=== PATIENT | female | born 1965 | race Asian ===

== ENCOUNTER 2016-11-03 19:09 | Emergency (ER) | payer BC ==
[2016-11-03 19:25] VITALS: BMI 37.9
[2016-11-03] MEDS ORDERED: SODIUM CHLORIDE 1,000 ML IV STA (20:06)
[2016-11-03] MEDS ORDERED: KETOROLAC TROMETHAMINE 30 MG/1 ML VIAL IVPUSH ONE (20:06)
[2016-11-03] MEDS ORDERED: KETOROLAC TROMETHAMINE 30 MG/1 ML VIAL ONE (20:12)
--- NOTE | 2016-11-03 20:12 | PDOC ---
History of Present Illness - General Chief Complaint: Pain, Acute Stated Complaint: KIDNEY PAIN Time Seen by Provider: 11/03/16 19:35 - History of Present Illness Initial Comments: 11/03/16 20:08 51-year-old female complaining of Right flank pain going to the right groin. Patient has a history of PCO S, nephrolithiasis, hypertension. Last episode of renal colic 2 years ago. patient reports pain similar to when passing a kidney stone. Patient denies fever nausea vomiting urinary symptoms at this time. patient denies Vaginal bleeding or vaginal discharge at time.. Past History - Past Medical History Allergies/Adverse Reactions: Allergies Allergy/AdvReac Type Severity Reaction Status Date / Time No Known Allergies Allergy Verified 11/03/16 19:21 Home Medications: Ambulatory Orders Metoprolol Tartrate [Lopressor] 10 mg PO BID 09/02/12 Invokamet 150-1,000 mg Tablet 150 - 1,000 mg PO BID 11/03/16 Cephalexin Monohydrate [Keflex -] 500 mg PO BID #20 capsule 11/04/16 Ibuprofen 600 mg PO QID PRN #20 tablet 11/04/16 Oxycodone HCl/Acetaminophen [Percocet 5-325 mg Tablet] 1 tab PO Q6H PRN #12 tablet MDD 4 11/04/16 Tamsulosin HCl [Flomax] 0.4 mg PO DAILY #7 cap.er.24h 11/04/16 Diabetes: Yes (Borderline) HTN: Yes Hypercholesterolemia: Yes Kidney Stones: Yes - Psycho/Social/Smoking Cessation Hx Suicidal Ideation: No Smoking Status: No Smoking History: Never smoked Number of Cigarettes Smoked Daily: 0 Information on smoking cessation initiated: No Hx Alcohol Use: No Drug/Substance Use Hx: No Substance Use Type: None Review of Systems - Review of Systems Able to Perform ROS?: Yes Is the patient limited Mexican proficient: No Constitutional: No: Symptoms Reported, See HPI, Chills, Diaphoresis, Fever, Loss of Appetite, Malaise, Night Sweats, Weakness, Weight Stable, Unintentional Wgt. Loss, Unexplained wgt Loss, Other : Yes: Flank Pain (right). No: Symptoms Reported, See HPI, Burning, Dysuria, Discharge, Frequency, Hematuria, Incontinence, Pain, Urgency, Testicular Mass, Testicular Swelling, Lesions, Testicular Pain, Other *Physical Exam - Vital Signs Last Vital Signs Temp Pulse Resp BP Pulse Ox 98.6 F 71 19 143/82 96 11/03/16 19:21 11/03/16 19:21 11/03/16 19:21 11/03/16 19:21 11/03/16 19:21 11/03/16 20:12 - Physical Exam General Appearance: Yes: Appropriately Dressed (Blank in) Respiratory/Chest: positive: Lungs Clear, Normal Breath Sounds Cardiovascular: positive: Regular Rhythm, Regular Rate Gastrointestinal/Abdominal: positive: Normal Bowel Sounds, Soft. negative: Tender Musculoskeletal: positive: CVA Tenderness (R) Extremity: positive: Normal Capillary Refill, Normal Inspection, Normal Range of Motion Integumentary: positive: Normal Color, Dry, Warm Neurologic: positive: Fully Oriented, Alert, Normal Mood/Affect ED Treatment Course - LABORATORY CBC & Chemistry Diagram: 11/03/16 20:21 11/03/16 20:21 - RADIOLOGY Radiograph Interpretation: 11/04/16 00:15 CTAP: Tiny bilateral nonobstructing renal stones 4.5X3 MM stone in the proximal right ureter with mild fullness of right renal pelvic calyceal system. Small umbilical fat-containing hernia. Progress Note - Progress Note Progress Note: A: Flank pain rule out kidney stone Plan: CBC, CMP, UA, urine culture, urine Spiral CT Pain control IV fluids Medical Decision Making - Medical Decision Making 11/04/16 00:16 4 mm stone in the right ureter. Will give Flomax Pain control and urology outpatient follow-up CT results discussed with the patient. 11/04/16 00:43 UA trace leuks. will empirically treat. *DC/Admit/Observation/Transfer Diagnosis at time of Disposition: Kidney stone - Discharge Dispostion Disposition: HOME - Prescriptions Prescriptions: Tamsulosin HCl [Flomax] 0.4 mg PO DAILY #7 cap.er.24h Ibuprofen 600 mg PO QID PRN #20 tablet PRN Reason: Pain Level 1-5 Cephalexin Monohydrate [Keflex -] 500 mg PO BID #20 capsule Oxycodone HCl/Acetaminophen [Percocet 5-325 mg Tablet] 1 tab PO Q6H PRN #12 tablet MDD 4 PRN Reason: Pain - Referrals Referrals: Yordan Cabrera MD [Primary Care Provider] - Mazin Erazo MD [Staff Physician] - - Patient Instructions Printed Discharge Instructions: Kidney Stones (Alternative Therapy) Additional Instructions: take ibuprofen as prescribed for moderate pain Take Percocet as prescribed for severe pain Take Flomax as prescribed Take cephalexin as prescribed Follow up with urologist as soon as possible. Drink plenty of water Return to the ER if you're having fever or severe pain, or worsening symptoms.
[2016-11-03 20:47] LABS: BASOPHIL 0.8 % (0-2.0); EOSINOPHIL 3.7 % (0-4.5); MCH 26.2 pg (25.7-33.7); MCHC 32.1 g/dl (32.0-36.0); MEAN CELL VOLUME 81.4 fl (80-96); MEAN PLT VOLUME 9.2 fl (7.5-11.1); NEUTROPHILS 65.8 % (42.8-82.8); PLATELET COUNT 327 K/MM3 (134-434); WHITE BLOOD COUNT 12.3 K/mm3 (4.0-10.0)
[2016-11-03 21:11] LABS: URINE APPEARANCE CLEAR; URINE BILIRUBIN NEGATIVE (NEGATIVE); URINE COLOR LTYELLOW; URINE GLUCOSE (UA) 2+ (NEGATIVE); URINE KETONE NEGATIVE (NEGATIVE); URINE NITRITE NEGATIVE (NEGATIVE); URINE PROTEIN NEGATIVE (NEGATIVE); URINE UROBILINOGEN NEGATIVE E.U./dl (0.2-1.0)
[2016-11-03 21:12] LABS: ALBUMIN 3.3 g/dl (3.4-5.0); ALK PHOS 155 U/L (45-117); ANION GAP 9 (8-16); BILIRUBIN,TOTAL 0.3 mg/dL (0.2-1.0); CALCIUM 11.1 mg/dL (8.5-10.1); CO2 29 mmol/L (21-32); COCKROFT - GAULT 127.2365; CREATININE 0.9 mg/dL (0.55-1.02); GLUCOSE,RANDOM 207 mg/dL (74-106); SGOT/AST 14 U/L (15-37); SGPT/ALT 36 U/L (12-78); TOT PROT 7.4 g/dl (6.4-8.2)
[2016-11-03 21:16] LABS: URINE BLOOD 1+ (NEGATIVE); URINE LEUK ESTERASE TRACE (NEGATIVE)
--- NOTE | 2016-11-03 21:28 | PDOC ---
*Physical Exam - Vital Signs Last Vital Signs Temp Pulse Resp BP Pulse Ox 98.6 F 71 19 143/82 96 11/03/16 19:21 11/03/16 19:21 11/03/16 19:21 11/03/16 19:21 11/03/16 19:21 ED Treatment Course - LABORATORY CBC & Chemistry Diagram: 11/03/16 20:21 11/03/16 20:21 - ADDITIONAL ORDERS Additional order review: Laboratory Results 11/03/16 11/03/16 11/03/16 20:21 20:21 20:21 Sodium 140 Potassium 3.6 Chloride 102 Carbon Dioxide 29 Anion Gap 9 BUN 13 Creatinine 0.9 D Creat Clearance w eGFR > 60 Random Glucose 207 H D Calcium 11.1 H Total Bilirubin 0.3 D AST 14 L ALT 36 D Alkaline Phosphatase 155 H D Total Protein 7.4 Albumin 3.3 L Urine Color Ltyellow Urine Appearance Clear Urine pH 6.0 Urine Protein Negative Urine Glucose (UA) 2+ H Urine Ketones Negative Urine Blood 1+ H Urine Nitrite Negative Urine Bilirubin Negative Urine Urobilinogen Negative Ur Leukocyte Esterase Trace H D Urine HCG, Qual Negative 11/03/16 20:21 RBC 5.24 H MCV 81.4 MCHC 32.1 RDW 15.0 MPV 9.2 Neutrophils % 65.8 Lymphocytes % 22.2 D Monocytes % 7.5 D Eosinophils % 3.7 Basophils % 0.8 - Medications Given in the ED: ED Medications Discontinued Medications Generic Name Dose Route Start Last Admin Trade Name Freq PRN Reason Stop Dose Admin Sodium Chloride 1,000 mls @ 1,000 mls/hr 11/03/16 20:06 11/03/16 20:26 Normal Saline - IV 11/03/16 21:05 1,000 mls/hr ASDIR STA Administration Ketorolac Tromethamine 30 mg 11/03/16 20:06 11/03/16 21:16 Toradol Injection - IVPUSH 11/03/16 20:07 30 mg ONCE ONE Administration Medical Decision Making - Medical Decision Making 11/03/16 21:28 agree with care from GUSTAVO Philip *DC/Admit/Observation/Transfer Diagnosis at time of Disposition: Kidney stone - Discharge Dispostion Disposition: HOME - Prescriptions Prescriptions: Tamsulosin HCl [Flomax] 0.4 mg PO DAILY #7 cap.er.24h Ibuprofen 600 mg PO QID PRN #20 tablet PRN Reason: Pain Level 1-5 Cephalexin Monohydrate [Keflex -] 500 mg PO BID #20 capsule Oxycodone HCl/Acetaminophen [Percocet 5-325 mg Tablet] 1 tab PO Q6H PRN #12 tablet MDD 4 PRN Reason: Pain - Referrals Referrals: Mazin Erazo MD [Staff Physician] - Yordan Cabrera MD [Primary Care Provider] - - Patient Instructions Printed Discharge Instructions: Kidney Stones (Alternative Therapy) Additional Instructions: take ibuprofen as prescribed for moderate pain Take Percocet as prescribed for severe pain Take Flomax as prescribed Take cephalexin as prescribed Follow up with urologist as soon as possible. Drink plenty of water Return to the ER if you're having fever or severe pain, or worsening symptoms.
[2016-11-03 21:51] LABS: URINE MUCUS RARE; URINE RBC 28 /hpf (0-3); URINE WBC 1 /hpf (3-5)
[2016-11-03] MEDS ORDERED: morphine CARPU-JECT 4 MG/1 ML DISP.SYRIN IVPUSH ONE (23:06)
[2016-11-03] MEDS ORDERED: morphine CARPU-JECT 4 MG/1 ML DISP.SYRIN ONE (23:08)
[2016-11-04] MEDS ORDERED: TAMSULOSIN HCL 0.4 MG CAP.ER.24H (FP) PO ONE (00:13)
[2016-11-04] MEDS ORDERED: TAMSULOSIN HCL 0.4 MG CAP.ER.24H (FP) ONE (00:29)
[2016-11-04 00:53] VITALS: BP 147/96; PULSE 65; TEMP 98.1
== END 2016-11-04 00:55 | disposition home or self-care (01) ==
LOC: JER 19:09
PROC: 3E033NZ Introduction of Analgesics, Hypnotics, Sedatives into Peripheral Vein, Percutaneous Approach (ICD-10-PCS; principal; 2016-11-03)
PROC: 3E0333Z Introduction of Anti-inflammatory into Peripheral Vein, Percutaneous Approach (ICD-10-PCS; 2016-11-03)
PROC: 3E0337Z Introduction of Electrolytic and Water Balance Substance into Peripheral Vein, Percutaneous Approach (ICD-10-PCS; 2016-11-03)
DX: N23 Unspecified renal colic (principal); I10 Essential (primary) hypertension; E78.00 Pure hypercholesterolemia, unspecified; Z87.442 Personal history of urinary calculi
CPT/HCPCS: 36415; 74176; 80053; 81003; 81015; 84703; 85025; 87086; 99283-25

== ENCOUNTER 2017-02-16 08:17 | Day surgery (SDC) | payer BC ==
[2017-02-14 12:26] VITALS: BMI 37.4
[2017-02-16] MEDS ORDERED: PROPOFOL 20 ML ONE (09:58)
[2017-02-16] MEDS ORDERED: ROCURONIUM BROMIDE 50 MG/5 ML VIAL ONE ×2 (09:58→11:20)
[2017-02-16] MEDS ORDERED: BUPIVACAINE HCL/PF 0.5% (5MG/ML) 10 ML VIAL ONE (10:18)
[2017-02-16] MEDS ORDERED: ceFAZolin SODIUM 1 GM VIAL IVPB ONE (10:29)
[2017-02-16] MEDS ORDERED: LIDOCAINE HCL/PF 2% SDV 5ML VIAL ONE (10:40)
[2017-02-16] MEDS ORDERED: DEXAMETHASONE SOD PHOSPHATE 4 MG/1 ML VIAL ONE (10:40)
[2017-02-16] MEDS ORDERED: LIDOCAINE HCL 2% JELLY (5 ML/TUBE) ONE (10:40)
[2017-02-16] MEDS ORDERED: NEOSTIGMINE METHYLSULFATE 0.5 MG/ML - 10 ML MDV ONE (10:41)
[2017-02-16] MEDS ORDERED: GLYCOPYRROLATE 0.2 MG/1 ML VIAL ONE (10:42)
[2017-02-16] MEDS ORDERED: BUPIVACAINE HCL/PF 0.5% (5MG/ML) 10 ML VIAL IJ ONE ×2 (11:04→12:28)
[2017-02-16] MEDS ORDERED: HYDROmorphone HCL CARPU-JECT 1 MG/1 ML DISP.SYRIN IVPB PRN (12:38)
[2017-02-16] MEDS ORDERED: ONDANSETRON 4 MG/2 ML VIAL IVPB PRN (12:38)
[2017-02-16] MEDS ORDERED: SODIUM CHLORIDE 1,000 ML IV SCH (12:45)
[2017-02-16] MEDS ORDERED: FAMOTIDINE 20 MG/50 ML IVPB 50 ML IVPB ONE (12:53)
[2017-02-16] MEDS ORDERED: FAMOTIDINE 20 MG PREMIXED IVPB IVPB ONE (13:15)
[2017-02-16 13:19] LABS: MCH 26.9 pg (25.7-33.7); MCHC 31.9 g/dl (32.0-36.0); MEAN CELL VOLUME 84.5 fl (80-96); MEAN PLT VOLUME 8.5 fl (7.5-11.1); PLATELET COUNT 335 K/MM3 (134-434); RDW 14.5 % (11.6-15.6); WHITE BLOOD COUNT 12.9 K/mm3 (4.0-10.0)
[2017-02-16 13:47] VITALS: TEMP 98.1
[2017-02-16 13:48] LABS: ANION GAP 9 (8-16); CALCIUM 9.2 mg/dL (8.5-10.1); CO2 26 mmol/L (21-32); CREATININE 0.6 mg/dL (0.55-1.02); GLUCOSE,RANDOM 187 mg/dL (74-106)
--- NOTE | 2017-02-16 15:01 | OP ---
DATE OF OPERATION: 02/16/2017 PREOPERATIVE DIAGNOSES: 1. Morbid obesity. 2. Sleep apnea. 3. Hypertension. 4. Polycystic ovarian syndrome. POSTOPERATIVE DIAGNOSES: 1. Morbid obesity. 2. Sleep apnea. 3. Hypertension. 4. Polycystic ovarian syndrome. 5. Hepatomegaly. PROCEDURE PERFORMED: 1. Gastric band for gastric restriction. 2. Diagnostic laparoscopy. OPERATING SURGEON: Roderick Hernandez MD HELICOPTER DISPATCHER: Mao Porras MD ANESTHESIA: General. OPERATIVE PROCEDURE: The patient was brought into the operating room and placed on the OR table in the supine position. All precautions were taken initially including padding for the back and the feet, and Venodyne boots were placed on both lower extremities. At that point, the abdomen was prepped and draped in the usual manner. A Veress needle was placed in the left upper quadrant and a pneumoperitoneum was established. It should be noted that this Veress needle was placed farther below the costal margin than normal because of the expected enlarged liver of the patient. After pneumoperitoneum was established, a no. 12 bladeless trocar was placed in the left upper quadrant and through that trocar, a laparoscopic camera was placed. This showed an extremely enlarged left lobe of the liver, extending far inferior than expected. Because of this, a no. 12 bladeless trocar was then placed below the left costal margin, and through that trocar, the camera was now placed for better visualization of the upper abdomen. This was followed by a no. 5 bladeless trocar and a no. 15 bladeless trocar in the right upper quadrant. At that point, a Miquel liver retractor was placed in the epigastrium to retract the left lobe of the liver. It was difficult to retract because the liver was so enlarged. The liver retractor needed to be moved multiple times between the greater curvature of the stomach and the lesser curvature in order to provide visualization of both sides of the stomach. The patient was then placed in a 20-degree reverse Trendelenburg position. The hygiene assistant surgeon, who was holding the camera, was able to retract the omentum in the left upper quadrant inferiorly in order to provide visualization of the left esophagogastric junction. The operating surgeon then grabbed the stomach and pulled it to the right side and electrocautery was used to score the peritoneum over the left esophagogastric junction. This continued superiorly until the left odalys of the diaphragm was noted. The stomach was then pulled to the patient's left side by the hygiene assistant surgeon while the operating surgeon located the caudate lobe of the liver. An opening was made in the avascular plane and the gastrohepatic ligament was divided with hemoclips up toward the right esophagogastric junction. The right odalys of the diaphragm was noted in the peritoneum anterior with electrocautery. A laparoscopic instrument was then used to make a blunt tunnel from the right to the left odalys until it was free in the left lower quadrant of the abdomen. The gastric band, which was an AP large band, was then prepped by the OR team and placed in a no. 15 port site. The band tube then placed with the laparoscopic instrument which was pulled and withdrawn to the patient's right side. The band tube was placed into the band buckle, which was tied with down and the band was rotated to the patient's right side. Our laparoscopic instrument easily fit between the band and the anterior stomach wall. The band tubing was then brought out of the no. 15 trocar site under direct vision. All trocars were removed. The pneumoperitoneum was released. The no. 15 trocar site on the outside was then extended laterally and dissection continued with electrocautery down to the right anterior rectus muscle. Next, 2-0 Prolene sutures were placed on all 4 sites, and the port was then attached to the right anterior rectus muscle. All trocar sites then received 0.25% Marcaine and were closed with 4-0 Biosyn in a subcuticular fashion. The port site was first closed with 3-0 Vicryl in the subcutaneous tissue, followed by 4-0 Biosyn in subcuticular fashion. Dressings were applied. The patient awoke from anesthesia and transferred out of the operating room to the recovery room in stable condition. EXPECTED BLOOD LOSS: 50 mL. ADDENDUM: It should be noted that because of the difficulty with the enlarged liver, the normal time of surgery, 60 minutes, took 100 minutes. This was complicated by the extremely enlarged size of the liver. David [id number]
[2017-02-16] MEDS ORDERED: ONDANSETRON 4 MG/2 ML VIAL ONE (15:05)
[2017-02-16] MEDS ORDERED: ONDANSETRON 4 MG/2 ML VIAL IVPB ONE (15:10)
[2017-02-16] MEDS ORDERED: ENOXAPARIN NA (PORCINE) 40 MG/0.4 ML DISP.SYRIN SQ ONE ×2 (15:30→16:30)
[2017-02-16] MEDS ORDERED: HYDROmorphone HCL CARPU-JECT 2 MG/1 ML DISP.SYRIN ONE (16:05)
[2017-02-16] MEDS ORDERED: HYDROmorphone HCL CARPU-JECT 2 MG/1 ML DISP.SYRIN IVPUSH ONE (16:10)
[2017-02-16] MEDS ORDERED: ACETAMINOPHEN 325 MG TABLET (FP) PO ONE (16:30)
[2017-02-16] MEDS ORDERED: oxyCODONE HCL 5 MG TABLET PO ONE (16:30)
[2017-02-16 19:13] VITALS: BP 140/90; PULSE 94
[2017-02-16] MEDS ORDERED: FAMOTIDINE 20 MG/50 ML IVPB 50 ML IVPB SCH (22:00)
== END 2017-02-16 18:30 | disposition home or self-care (01) ==
LOC: JASU-SURG 08:17
PROVIDERS: ATTEND Surgery
PROC: 0DV64CZ Restriction of Stomach with Extraluminal Device, Percutaneous Endoscopic Approach (ICD-10-PCS; principal; 2017-02-16 10:00)
DX: E66.01 Morbid (severe) obesity due to excess calories (principal); G47.30 Sleep apnea, unspecified; I10 Essential (primary) hypertension; E28.2 Polycystic ovarian syndrome; R16.0 Hepatomegaly, not elsewhere classified
CPT/HCPCS: 36415; 74241-TC; 80048; 84703; 85027; 86850; 86900; 86901; 94010; 94760

== ENCOUNTER 2018-09-16 17:01 | Emergency (ER) | payer BC ==
--- NOTE | 2018-09-16 17:20 | PDOC ---
History of Present Illness - General Chief Complaint: Chest Pain Stated Complaint: Pain Time Seen by Provider: 09/16/18 17:18 History Source: Patient Exam Limitations: No Limitations - History of Present Illness Initial Comments: Pt is a 52 yo F, with PMH of lap-band surgery ([address] 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 Pt also endorses recent decreased PO intake and decreased appetite. Pt states the pain is intermittent, non-exertional, and is sharp in quality. Pain is not associated with food or fluid intake, and is not associated with n/v/diaphoresis when the pain occurs. Pt states she has increased thirst and polyuria since she was diagnosed with DM. Pt denies any fevers/chills, headache, vision changes, syncope, palpitations, SOB, nausea/vomiting, urinary symptoms, constipation, or leg swelling. Social: Pt denies any cigarette, alcohol, or drug use. Pt denies any recent travel or sick contacts. Surgical: lap band surgery. Family: no relevant history. 09/16/18 20:52 Past History - Travel Traveled outside of the country in the last 30 days: No Close contact w/someone who was outside of country & ill: No - Past Medical History Allergies/Adverse Reactions: Allergies Allergy/AdvReac Type Severity Reaction Status Date / Time No Known Allergies Allergy Verified 09/16/18 17:14 Home Medications: Ambulatory Orders Canagliflozin/Metformin HCl [Invokamet 150-1,000 mg Tablet] 1 each PO BID Amlodipine Besylate [Norvasc -] 10 mg PO DAILY 02/14/17 Atorvastatin Ca [Lipitor] 20 mg PO HS 02/14/17 Amlodipine Besylate 10 mg PO DAILY 09/16/18 Loperamide HCl [Imodium -] 2 mg PO DAILY PRN #7 capsule 09/16/18 Metoprolol Tartrate 25 mg PO DAILY 09/16/18 Ondansetron [Zofran Odt -] 4 mg SL BID PRN #14 od.tablet 09/16/18 metroNIDAZOLE [Flagyl -] 500 mg PO BID 10 Days #20 tablet 09/16/18 Anemia: No Asthma: No Cancer: No Cardiac Disorders: No CVA: No COPD: No CHF: No Dementia: No Diabetes: Yes (Borderline, takes meds for pcos) GI Disorders: No Disorders: No HTN: Yes Hypercholesterolemia: Yes Kidney Stones: Yes Liver Disease: No Seizures: No Thyroid Disease: No (parathyroid being checked calcium high) - Suicide/Smoking/Psychosocial Hx Smoking Status: No Smoking History: Never smoked Number of Cigarettes Smoked Daily: 0 Information on smoking cessation initiated: No Hx Alcohol Use: No Drug/Substance Use Hx: No Substance Use Type: None Hx Substance Use Treatment: No Review of Systems - Review of Systems Able to Perform ROS?: Yes Is the patient limited Pakistani proficient: No Constitutional: Yes: Weight Stable. No: Chills, Diaphoresis, Fever, Loss of Appetite, Malaise, Weakness HEENTM: No: Blurred Vision, Double Vision, Nose Congestion, Throat Pain, Throat Swelling, Difficulty Swallowing Respiratory: No: Cough, Orthopnea, Shortness of Breath Cardiac (ROS): No: Chest Pain, Edema, Irregular Heart Rate, Lightheadedness, Palpitations, Syncope, Chest Tightness ABD/GI: Yes: Poor Appetite, Abdominal cramping. No: Abdominal Distended, Abd. Pain w/ defecation, Blood Streaked Bowels, Constipated, Diarrhea, Nausea, Poor Fluid Intake, Vomiting, Indigestion, Tarry Stools : No: Burning, Dysuria, Frequency, Flank Pain, Hematuria, Pain, Urgency Musculoskeletal: No: Back Pain, Joint Pain, Muscle Weakness Integumentary: No: Rash Neurological: No: Headache, Numbness, Weakness, Unsteady Gait, Dizziness Psychiatric: No: Sleep Pattern Change, Change in Appetite Endocrine: Yes: Increased Thirst, Increased Urine. No: Intolerance to Cold, Intolerance to Heat, Change in Weight Hematologic/Lymphatic: No: Anemia, Blood Clots, Easy Bleeding, Easy Bruising All Other Systems: Reviewed and Negative *Physical Exam - Vital Signs Last Vital Signs Temp Pulse Resp BP Pulse Ox 97.4 F L 109 H 16 133/90 100 09/16/18 17:05 09/16/18 17:05 09/16/18 17:05 09/16/18 17:05 09/16/18 17:05 - Physical Exam Comments: 133/90, HR 109, pt afebrile. Pt in NAD, obese body habitus. Pt alert and oriented x3. instructor substitute cosmetology generally intact, muscular strength and sensation intact. No midline spinal tenderness, step-offs, or crepitus. Head normocephalic, atraumatic. Well-healed thyroidectomy scar. Eyes PERRLA, EOMI. Oropharynx without erythema or exudates, no LAD b/l. No nasal congestion, hearing intact. Clear heart sounds, S1/S2, no JVD, b/l pedal edema, or heart murmur. Clear lung sounds, no respiratory distress, wheezes, crackles, or accessory muscle use. No reproducible chest wall tenderness to palpation. No breast tenderness to palpation, no breast erythema or nipple discharge. LUQ abdominal tenderness to palpation, but with no rebound, no guarding. Abdomen soft, non-distended, and with hyperactive bowel sounds. No CVA tenderness to palpation. Well-healed mid abdominal scars. Skin without jaundice or rash. 09/16/18 19:24 09/16/18 19:51 09/16/18 20:08 09/16/18 20:54 Heart Score/ECG Review - History History: Slightly suspicious - Electrocardiogram EKG: Normal - Age Age: 45-65 - Risk Factors Risk Factors Heart Score: Yes Hx Hypertension, Yes Hx Diabetes, Yes Hx Obesity Based on the list above the patient has:: >/=3 risk factors or Hx atherosclerotic disease - Troponin Troponin: </= normal limit - Score Heart Score - Total: 3 ED Treatment Course - LABORATORY CBC & Chemistry Diagram: 09/16/18 17:56 09/16/18 17:56 Medical Decision Making - Medical Decision Making Pt was seen at bedside, also will be seen by attending Dr. Mehta. Pt presenting with complaints of lower L chest pain/upper L abdominal pain and a few episodes of loose brown stool since yesterday afternoon. Pt also endorses recent decreased PO intake and decreased appetite. Pt states the pain is intermittent, non-exertional, and is sharp in quality. Pain is not associated with food or fluid intake, and is not associated with n/v/diaphoresis when the pain occurs. Pt states she has increased thirst and polyuria since she was diagnosed with DM. Pt denies any fevers/chills, headache, vision changes, syncope, palpitations, SOB, nausea/vomiting, urinary symptoms, constipation, or leg swelling. Considering ACS vs pancreatitis vs complication from lap band surgery vs constipation vs diverticulitis vs cholecysitis vs gastritis/enteritis vs obstruction vs gastroparesis. Ordered work-up including CBC, CMP, Mg, Phos, UA, urine culture, serum , cardiac profile, ECG, coags, chest x-ray, and PO and IV contrast CT abd/ pelvis. Provided 20 mg IV pepcid and 1 L IV NS for improvement of hydration and upper abdominal/chest discomfort. Will continue to reassess pt and monitor for symptomatic improvement. ECG: Sinus tachycardia, intervals WNL (HR 102, SD 144, QRS 76, QTC 463). T wave flattening in inferior leads, no significant ST segment changes. No prior ECG for comparison. CBC: WBC 12.2, H/H stable CMP: gluc 252, lipase 202 Mg 1.4 -- repleting with 1 g IV Mg; Phos 3.7 Trop <.02 Serum test negative. Pt receiving PO contrast and then will go for CT scan and chest x-ray. Pt will likely be observed due to abdominal and possible lower chest pain. Will contact PCP after imaging. 09/16/18 20:23 CT Abd/Pelvis with PO and IV contrast -- Impression: 1.Patient status post gastric lap band. There is no evidence of slippage of the band. No gastric erosion or perforation identified. 2. 1.2 cm right adrenal gland nodule, indeterminate. 3. Periumbilical hernia, fat-containing only. No incarcerated bowel evident. 4. 1.8 cm left ovarian cyst. 5. Gallbladder small contracted, limiting its evaluation. Pt wishes to leave AMA. Pt informed of risks and benefits of further work-up, and she signed AMA forms. Spoke with PCP (Dr. Yordan Cabrera) who recommends starting flagyl 500 mg PO BID and imodium/zofran for continued nausea or diarrhea. Medications sent to pharmacy per Dr. Cabrera request (treating for potential infectious colitis). He will see the pt in clinic tomorrow at 12 pm. Pt vitals stable, afebrile, and is now pain free, however, still mild LUQ abdominal tenderness to palpation. Pt provided copies of return precautions, labs, and CT scan for pt to take to PCP tomorrow. Strict return precautions provided with pt understanding. 09/16/18 23:00 *DC/Admit/Observation/Transfer Diagnosis at time of Disposition: LUQ abdominal pain Chest pain Qualifiers: Chest pain type: unspecified Qualified Code(s): R07.9 - Chest pain, unspecified - Discharge Dispostion Disposition: AGAINST MEDICAL ADVICE Condition at time of disposition: Improved Decision to Admit order: No - Prescriptions Prescriptions: Loperamide HCl [Imodium -] 2 mg PO DAILY PRN #7 capsule PRN Reason: Diarrhea metroNIDAZOLE [Flagyl -] 500 mg PO BID 10 Days #20 tablet Ondansetron [Zofran Odt -] 4 mg SL BID PRN #14 od.tablet PRN Reason: Nausea And/Or Vomiting - Referrals Referrals: Yordan Cabrera MD [Primary Care Provider] - - Patient Instructions Printed Discharge Instructions: DI for Atypical Chest Pain, DI for Abdominal Pain-Adult Additional Instructions: You were seen in the ER today for left abdominal and chest pain. The results of your labs and imaging today showed low magnesium, which we treated, but your CT scan showed no new changes. Please follow-up with your primary care doctor tomorrow at 12 pm to discuss your visit and make sure your symptoms have improved. Please return to the ER if you have any worsening pain, development of fevers or chills, loss of consciousness, inability to tolerate food or fluids , or any other concerns. We have sent antibiotics and medications for your symptoms to your pharmacy. Please take these as prescribed. - Post Discharge Activity
[2018-09-16 17:28] VITALS: BMI 34.9
[2018-09-16] MEDS ORDERED: FAMOTIDINE 20 MG/50 ML IVPB 20 MG/50 ML MG IVPB ONE ×2 (17:47→18:10)
[2018-09-16] MEDS ORDERED: ACETAMINOPHEN 325 MG TABLET (FP) PO ONE (17:47)
[2018-09-16] MEDS ORDERED: SODIUM CHLORIDE 1,000 ML IV STA (17:47)
[2018-09-16 18:02] LABS: BASO % 0.5 % (0-2.0); EOS % 2.5 % (0-4.5); HEMATOCRIT 43.3 % (32.4-45.2); HEMOGLOBIN 13.9 GM/dL (10.7-15.3); LYMPH % 25.3 % (8-40); MCHC 32.2 g/dl (32.0-36.0); MEAN CELL VOLUME 80.8 fl (80-96); MEAN PLT VOLUME 8.5 fl (7.5-11.1); MONO % 7.3 % (3.8-10.2); NEUT % 64.4 % (42.8-82.8); PLATELET COUNT 380 K/MM3 (134-434); RBC 5.35 M/mm3 (3.60-5.2); RDW 15.9 % (11.6-15.6); WHITE BLOOD COUNT 12.2 K/mm3 (4.0-10.0)
[2018-09-16] MEDS ORDERED: ACETAMINOPHEN 1000 MG/100 ML VIAL (NON FORMULARY) IVPB ONE (18:09)
[2018-09-16] MEDS ORDERED: ACETAMINOPHEN INJECTION 100 ML IVPB ONE (18:09)
[2018-09-16 18:24] LABS: INR 0.94 (0.83-1.09); PROTHROMBIN TIME (PATIENT) 11.1 SEC (9.7-13.0)
[2018-09-16 18:34] LABS: ALBUMIN 3.5 g/dl (3.4-5.0); ALK PHOS 147 U/L (45-117); ANION GAP 8 MMOL/L (8-16); BILIRUBIN,TOTAL 0.2 mg/dL (0.2-1); BLOOD UREA NITROGEN 11 mg/dL (7-18); CALCIUM 8.7 mg/dL (8.5-10.1); CHLORIDE 104 mmol/L (98-107); CO2 24 mmol/L (21-32); GLUCOSE,RANDOM 252 mg/dL (74-106); POTASSIUM 4.2 mmol/L (3.5-5.1); SGOT/AST 23 U/L (15-37); SGPT/ALT 29 U/L (13-61); SODIUM 137 mmol/L (136-145); TOT PROT 7.9 g/dl (6.4-8.2)
[2018-09-16 18:35] LABS: MAGNESIUM 1.4 mg/dL (1.8-2.4); PHOSPHOROUS 3.7 mg/dL (2.5-4.9)
[2018-09-16] MEDS ORDERED: MAGNESIUM SULF 50% (8.12 MEQ/2 ML-1 GM VIAL) IVPB ONE ×2 (18:44→19:53)
--- NOTE | 2018-09-16 18:44 | PDOC ---
Documentation entered by Laura Laird SCRIBE, acting as scribe for Senia Mehta DO. Senia Mehta DO: This documentation has been prepared by the Eitan culp Daisy, SCRIBE, under my direction and personally reviewed by me in its entirety. I confirm that the documentation accurately reflects all work, treatment, procedures, and medical decision making performed by me. Attending Attestation - Resident Resident Name: Drea Parks - ED Attending Attestation I have performed the following: I have examined & evaluated the patient, The case was reviewed & discussed with the resident, I agree w/resident's findings & plan - HPI HPI: 09/16/18 17:58 The patient is a 52 YOF with a PMH of lap band surgery [address] Hernandez , HTN, NIDDM, PCOS, thyroid and parathyroid presents to the ER with left upper quadrant and left chest wall tenderness since yesterday. The patient reports the LUQ and chest wall pain began while cooking yesterday. She states it is intermittent, nonradiating, and nonexertional that became sharp today. Denies any heavy lifting or straining. Patient also admits to having 2 episodes of loose stool today. Allergies: NKDA PCP: Dr. Yordan Velasquez - Physicial Exam PE: 09/16/18 18:20 ADULT PHYSICAL EXAM Constitutional: Awake, alert, oriented. No acute distress. Cardiovascular: (+) Tachycardic. Regular rhythm. S1, S2 regular. Distal pulses are 2+ and symmetric. Pulmonary/Chest: No evidence of respiratory distress. Clear to auscultation bilaterally No wheezing, rales or rhonchi. Abdominal: Soft and non-distended. (+) Epigastric and left upper quadrant tenderness. No rebound, guarding or rigidity. No organomegaly. No palpable masses. Good bowel sounds. Musculoskeletal: No edema. Full range of motion in all extremities. Skin: Skin is warm and dry. No petechiae. No purpura. Neurological: Alert and oriented to person, place, and time. Cranial nerves II -XII are grossly intact. Psychiatric: Good eye contact. Normal interaction, affect and behavior. - Medical Decision Making 09/16/18 17:34 I, Dr. Senia Mehta DO, attest that this document has been prepared under my direction and personally reviewed by me in its entirety. I further attest, that it accurately reflects all work, treatment, procedures and medical decision -making performed by me. 09/16/18 18:26 a/p: 52yo female s/p gastric banding with upper abd pain. No n/v. Has had diarrhea all day and intermittent episodes of sharp pain -hx of pcos, hx of gastric banding, hx of parathyroid and thyroid surgery -no f/c. -no dysuria -no cp/sob/pleuritic cp -ttp over epigastric and LUQ -will send labs, ct abd/pelvis, ivf hydration -will monitor and reassess 09/16/18 18:44 pt with low mag, will replace, rest of labs unremarkable Heart Score/ECG Review - ECG Intrepretation Comment:: 09/16/18 17:34 sinus tach at 102, nl axis, nl interval, no acute st/t wave findings
[2018-09-16] MEDS ORDERED: MAGNESIUM 1GM/D5W - 1 GM/100 ML IVPB IVPB ONE (19:36)
--- NOTE | 2018-09-16 22:36 | PDOC ---
*Physical Exam - Vital Signs Last Vital Signs Temp Pulse Resp BP Pulse Ox 97.4 F L 109 H 16 133/90 100 09/16/18 17:05 09/16/18 17:05 09/16/18 17:05 09/16/18 17:05 09/16/18 17:05 ED Treatment Course - LABORATORY CBC & Chemistry Diagram: 09/16/18 17:56 09/16/18 17:56 - ADDITIONAL ORDERS Additional order review: Laboratory Results 09/16/18 09/16/18 09/16/18 17:56 17:56 17:56 PT with INR 11.10 INR 0.94 Sodium Potassium Chloride Carbon Dioxide Anion Gap BUN Creatinine Creat Clearance w eGFR Random Glucose Calcium Phosphorus 3.7 Magnesium 1.4 L Total Bilirubin AST ALT Alkaline Phosphatase Creatine Kinase Troponin I Total Protein Albumin Lipase 202 Serum , Qual Negative 09/16/18 17:56 PT with INR INR Sodium 137 Potassium 4.2 Chloride 104 Carbon Dioxide 24 Anion Gap 8 BUN 11 Creatinine 1.0 Creat Clearance w eGFR 58.69 Random Glucose 252 H Calcium 8.7 Phosphorus Magnesium Total Bilirubin 0.2 AST 23 ALT 29 Alkaline Phosphatase 147 H Creatine Kinase 143 Troponin I < 0.02 Total Protein 7.9 Albumin 3.5 Lipase Serum , Qual 09/16/18 17:56 RBC 5.35 H MCV 80.8 MCHC 32.2 RDW 15.9 H MPV 8.5 Neutrophils % 64.4 Lymphocytes % 25.3 Monocytes % 7.3 Eosinophils % 2.5 Basophils % 0.5 - Medications Given in the ED: ED Medications Discontinued Medications Generic Name Dose Route Start Last Admin Trade Name Jessa PRN Reason Stop Dose Admin Acetaminophen 650 mg 09/16/18 17:47 09/16/18 19:40 Tylenol - PO 09/16/18 17:48 Not Given ONCE ONE Acetaminophen 1,000 mg 09/16/18 18:09 09/16/18 18:15 Ofirmev Injection - IVPB 09/16/18 18:10 1,000 mg ONCE ONE Administration Famotidine/Sodium Chloride 20 mg in 50 mls @ 100 mls/hr 09/16/18 17:47 18:15 Pepcid 20 Mg Premixed Ivpb - IVPB 09/16/18 18:16 100 mls/hr ONCE ONE Administration Sodium Chloride 1,000 mls @ 1,000 mls/hr 09/16/18 17:47 09/16/18 19:03 Normal Saline - IV 09/16/18 18:46 1,000 mls/hr ASDIR STA Administration Magnesium Sulfate 1 gm 09/16/18 18:44 09/16/18 19:48 Magnesium Sulfate IVPB 09/16/18 18:45 1 gm ONCE ONE Administration Magnesium Sulfate 1 gm 09/16/18 19:53 09/16/18 20:23 Magnesium Sulfate IVPB 09/16/18 19:54 1 gm ONCE ONE Administration Medical Decision Making - Medical Decision Making 09/16/18 22:35 Patient Name: KANDICE FREDERICK THIS IS A PRELIMINARY REPORT FROM [facility] DATE OF SERVICE: 2018-09-16 21:32:08 IMAGES: 493 EXAM: ABDOMEN \T\ PELVIS CT WITH CONTR History: 52-year-old female left upper quadrant pain. Status post gastric lap band ?1 year. Comparison: None Procedure: CT scan abdomen and pelvis, dated September 16, 2018 . Axial images obtained followed by coronal and sagittal reconstructions. Intravenous contrast utilized, 95 mL Omni 350 . Oral contrast also utilized. Findings: Surgical clips present in the epigastrium. Gastric lap band noted. No evidence of slippage of the gastric band. No erosion of the band into the stomach. No evidence of a devitalized stomach. No extravasation of oral contrast evident. The liver, spleen, pancreas, left adrenal gland and kidneys unremarkable. 1.2 cm right adrenal gland nodule. Gallbladder small and contracted, limiting its evaluation. No ureteral or bladder abnormalities noted. Rectum and perirectal space unremarkable. No large or small bowel inflammatory changes evident. Terminal ileum normal in appearance. Appendix not visualized. Periumbilical hernia, fat-containing only. No additional abdominal wall defects present. No free intraperitoneal air or fluid noted. Uterus anteverted in position. Right ovary unremarkable. 1.8 cm cyst left ovary. Impression: 1.Patient status post gastric lap band. There is no evidence of slippage of the band. No gastric erosion or perforation identified. 2. 1.2 cm right adrenal gland nodule, indeterminate. 3. Periumbilical hernia, fat-containing only. No incarcerated bowel evident. 4. 1.8 cm left ovarian cyst. 5. Gallbladder small contracted, limiting its evaluation 09/16/18 23:02 We wanted to admit pt for ACS workup. She is refusing and and she will sign AMA. Pt will follow with PMD; PMD Yordan Cabrera is requesting that we discharge her on Flagyl *DC/Admit/Observation/Transfer Diagnosis at time of Disposition: LUQ abdominal pain Chest pain Qualifiers: Chest pain type: unspecified Qualified Code(s): R07.9 - Chest pain, unspecified - Prescriptions Prescriptions: Loperamide HCl [Imodium -] 2 mg PO DAILY PRN #7 capsule PRN Reason: Diarrhea metroNIDAZOLE [Flagyl -] 500 mg PO BID 10 Days #20 tablet Ondansetron [Zofran Odt -] 4 mg SL BID PRN #14 od.tablet PRN Reason: Nausea And/Or Vomiting - Referrals Referrals: Yordan Cabrera MD [Primary Care Provider] - - Patient Instructions - Post Discharge Activity
[2018-09-16] MEDS ORDERED: LOPERAMIDE HCL 2 MG CAPSULE PO ONE (22:43)
[2018-09-16] MEDS ORDERED: metroNIDAZOLE 250 MG TABLET PO ONE (22:43)
[2018-09-16] MEDS ORDERED: LOPERAMIDE HCL 2 MG CAPSULE ONE (22:52)
[2018-09-16] MEDS ORDERED: metroNIDAZOLE 250 MG TABLET ONE (22:52)
[2018-09-16 23:08] VITALS: BP 136/78; PULSE 96; TEMP 98.5
--- NOTE | 2018-09-17 09:57 | EKG ---
Test Reason : Blood Pressure : / mmHG Vent. Rate : 102 BPM Atrial Rate : 102 BPM P-R Int : 144 ms QRS Dur : 076 ms QT Int : 356 ms P-R-T Axes : 033 030 015 degrees QTc Int : 463 ms POOR DATA QUALITY, INTERPRETATION MAY BE ADVERSELY AFFECTED SINUS TACHYCARDIA OTHERWISE NORMAL ECG WHEN COMPARED WITH ECG OF 15-JUL-2008 09:15, NO SIGNIFICANT CHANGE WAS FOUND Confirmed by SATISH RAM MD ([id number]) on 09/17/2018 9:57:21 AM Referred By: Confirmed By:SATISH RAM MD
== END 2018-09-16 23:08 | disposition left against medical advice (07) ==
LOC: JER 17:01
PROC: 3E0337Z Introduction of Electrolytic and Water Balance Substance into Peripheral Vein, Percutaneous Approach (ICD-10-PCS; principal; 2018-09-16)
PROC: 3E033GC Introduction of Other Therapeutic Substance into Peripheral Vein, Percutaneous Approach (ICD-10-PCS; 2018-09-16)
PROC: 3E033GC Introduction of Other Therapeutic Substance into Peripheral Vein, Percutaneous Approach (ICD-10-PCS; 2018-09-16)
PROC: 3E033GC Introduction of Other Therapeutic Substance into Peripheral Vein, Percutaneous Approach (ICD-10-PCS; 2018-09-16)
PROC: 3E033NZ Introduction of Analgesics, Hypnotics, Sedatives into Peripheral Vein, Percutaneous Approach (ICD-10-PCS; 2018-09-16)
DX: R07.9 Chest pain, unspecified (principal); R10.12 Left upper quadrant pain; I10 Essential (primary) hypertension; E11.9 Type 2 diabetes mellitus without complications; Z79.84 Long term (current) use of oral hypoglycemic drugs; E28.2 Polycystic ovarian syndrome; Z98.84 Bariatric surgery status
CPT/HCPCS: 36415; 74177-TC; 80053; 82550; 83690; 83735; 84100; 84484; 84703; 85025; 85610; 93005; 93010; 99284-25; J0131; J7030

== ENCOUNTER 2019-01-18 20:52 | Emergency (ER) | payer BC | END 2019-01-19 02:16 | disposition home or self-care (01) | LOC: JER 20:52 ==

== ENCOUNTER 2019-01-29 10:55 | Emergency (ER) | payer BC ==
[2019-01-29 11:02] VITALS: BP 138/89; PULSE 82; BMI 32.4
--- NOTE | 2019-01-29 12:35 | PDOC ---
*Physical Exam - Vital Signs Last Vital Signs Temp Pulse Resp BP Pulse Ox 82 16 138/89 100 01/29/19 11:00 01/29/19 11:00 01/29/19 11:00 01/29/19 11:00 Medical Decision Making - Medical Decision Making 01/29/19 12:34 Ms. Jose Bateman is a 53 yo F who presents to the ER with a complaint of back pain Pt has a h/o HTN, HLD, DM, PCOS, prior kidney stones, hx thyroidectomy and parathyroidectomy (benign) presents with right lower back pain Was seen in the ER for similar symptoms Started on abx which she has completed Pt continues to report pain PA assessment reveals musculoskeleta pain Will manage pain D/c home Follow up with PMD Pt seen by Midlevel Provider under my direct supervision I agree with plan as outlined by Midlevel Provider 01/29/19 13:23 *DC/Admit/Observation/Transfer Diagnosis at time of Disposition: Musculoskeletal back pain - Discharge Dispostion Disposition: HOME Condition at time of disposition: Stable - Prescriptions Prescriptions: Lidocaine 5% Patch [Lidoderm Patch -] 1 patch TP DAILY #30 patch Methocarbamol [Robaxin -] 1,500 mg PO Q6H #24 tablet - Referrals Referrals: Yordan Cabrera MD [Primary Care Provider] - 2 Days - Patient Instructions Printed Discharge Instructions: DI for Musculoskeletal Pain Additional Instructions: Thank you for choosing [facility]. It was a pleasure taking care of you. You may take Motrin 600 mg every 6 hours by mouth as needed for mild to moderate pain. Take Motrin with food. Take Robaxin as muscle relaxer. This medication can also make you drowsy so please be cautious with driving or performing heavy physical work. Apply warm compresses Use lidocaine patch - apply for 12 hours and then keep off for 12 hours Follow-up with your doctor in 2 days Return to the Emergency Department if your symptoms worsen or persist, you have fever, shortness of breath, chest pain, severe abdominal pain, vomiting or other concerning symptoms. - Post Discharge Activity Forms/Work/School Notes: Back to Work
[2019-01-29] MEDS ORDERED: IBUPROFEN 600 MG TABLET (FP) PO ONE ×2 (12:41→13:04)
[2019-01-29] MEDS ORDERED: LIDOCAINE 5% TOPICAL PATCH TP ONE (12:41)
[2019-01-29] MEDS ORDERED: METHOCARBAMOL 750 MG TABLET PO ONE (12:45)
[2019-01-29] MEDS ORDERED: LIDOCAINE 5% TOPICAL PATCH ONE (13:04)
[2019-01-29] MEDS ORDERED: METHOCARBAMOL 500 MG TABLET ONE (13:04)
--- NOTE | 2019-01-29 13:19 | PDOC ---
History of Present Illness - General Chief Complaint: Pain, Acute Stated Complaint: LOWER BACK PAIN Time Seen by Provider: 01/29/19 11:58 History Source: Patient Exam Limitations: No Limitations Past History - Past Medical History Allergies/Adverse Reactions: Allergies Allergy/AdvReac Type Severity Reaction Status Date / Time No Known Allergies Allergy Verified 01/29/19 11:03 Home Medications: Ambulatory Orders Canagliflozin/Metformin HCl [Invokamet 150-1,000 mg Tablet] 1 each PO BID Amlodipine Besylate [Norvasc -] 10 mg PO DAILY 02/14/17 Atorvastatin Ca [Lipitor] 20 mg PO HS 02/14/17 Metoprolol Tartrate 25 mg PO DAILY 09/16/18 Levothyroxine Sodium [Synthroid] 137 mcg PO DAILY 01/19/19 Sulfamethoxazole/Trimethoprim [Bactrim Ds -] 1 tab PO BID #10 tablet 01/24/19 Lidocaine 5% Patch [Lidoderm Patch -] 1 patch TP DAILY #30 patch 01/29/19 Methocarbamol [Robaxin -] 1,500 mg PO Q6H #24 tablet 01/29/19 Anemia: No Asthma: No Cancer: No Cardiac Disorders: No CVA: No COPD: No CHF: No Dementia: No Diabetes: Yes GI Disorders: No Disorders: Yes (B renal colic) HTN: Yes Hypercholesterolemia: Yes Kidney Stones: Yes Liver Disease: No Seizures: No Thyroid Disease: No (parathyroid being checked calcium high) - Suicide/Smoking/Psychosocial Hx Smoking Status: No Smoking History: Never smoked Number of Cigarettes Smoked Daily: 0 Hx Alcohol Use: No Drug/Substance Use Hx: No Substance Use Type: None Hx Substance Use Treatment: No *Physical Exam - Vital Signs Last Vital Signs Temp Pulse Resp BP Pulse Ox 82 16 138/89 100 01/29/19 11:00 01/29/19 11:00 01/29/19 11:00 01/29/19 11:00 - Physical Exam General Appearance: No: Apparent Distress Respiratory/Chest: positive: Lungs Clear, Normal Breath Sounds. negative: Respiratory Distress Cardiovascular: positive: Regular Rhythm, Regular Rate, S1, S2. negative: Murmur Gastrointestinal/Abdominal: positive: Soft. negative: Tender, Distended, Guarding, Rebound, Tenderness Musculoskeletal: positive: Other (+mild TTP along R latissumus). negative: CVA Tenderness, Vertebral Tenderness Neurologic: positive: Alert, Normal Mood/Affect, Other (normal gait) Medical Decision Making - Medical Decision Making 53 y/o F hx of HTN, HLD, DM, PCOS, prior kidney stones, hx thyroidectomy and parathyroidectomy (benign) presents with R flank pain sometimes radiating along side of R abdomen x 2 weeks. Was seen 2 weeks ago and had spiral CT done which showed B/L nonobstructing kidney stones; patient was initially sent home with rx for Keflex, which was then changed to bactrim following results of her urine culture. States today is her last day of her Bactrim. Has not noted improved in her sxs though. States pain is worse with movement of body (such as getting up or twisting body). Denies fever, sob, cp, n/v/d, constipation, dysuria, hematuria Labs reviewed for last visit Less likely kidney stones given no CVA tenderness and recent CT A/P showed no obstructing stone Likely MSK pain given it is with movement of body Given Robaxin, Motrin and Lido patch Patient did not want to wait to see if meds help as states she has another appt today at 2 PM regarding her thyroid Has appointment with PCP in 2 days Stable for dc 01/29/19 13:15 *DC/Admit/Observation/Transfer Diagnosis at time of Disposition: Musculoskeletal back pain - Discharge Dispostion Disposition: HOME Condition at time of disposition: Stable Decision to Admit order: No - Prescriptions Prescriptions: Lidocaine 5% Patch [Lidoderm Patch -] 1 patch TP DAILY #30 patch Methocarbamol [Robaxin -] 1,500 mg PO Q6H #24 tablet - Referrals Referrals: Yordan Cabrera MD [Primary Care Provider] - 2 Days - Patient Instructions Printed Discharge Instructions: DI for Musculoskeletal Pain Additional Instructions: Thank you for choosing [facility]. It was a pleasure taking care of you. You may take Motrin 600 mg every 6 hours by mouth as needed for mild to moderate pain. Take Motrin with food. Take Robaxin as muscle relaxer. This medication can also make you drowsy so please be cautious with driving or performing heavy physical work. Apply warm compresses Use lidocaine patch - apply for 12 hours and then keep off for 12 hours Follow-up with your doctor in 2 days Return to the Emergency Department if your symptoms worsen or persist, you have fever, shortness of breath, chest pain, severe abdominal pain, vomiting or other concerning symptoms. - Post Discharge Activity Forms/Work/School Notes: Back to Work
== END 2019-01-29 13:20 | disposition home or self-care (01) ==
LOC: JER 10:55 → SUPCPDRO 10:55 → JER 13:20
DX: M54.5 Low back pain (principal); R10.31 Right lower quadrant pain; I10 Essential (primary) hypertension; E78.5 Hyperlipidemia, unspecified; E11.9 Type 2 diabetes mellitus without complications; Z79.84 Long term (current) use of oral hypoglycemic drugs; Z87.442 Personal history of urinary calculi
CPT/HCPCS: 99282-25

== ENCOUNTER 2020-08-11 13:26 | Emergency (ER) | payer BC ==
[2020-08-11 13:37] VITALS: BP 154/98; PULSE 101; TEMP 97.8; BMI 32.4
[2020-08-11] MEDS ORDERED: BAMLANIVIMAB 700 MG, ETESEVIMAB 1,400 MG in SODIUM CHLORIDE 250 ML IVPB ONE (14:00)
[2020-08-11 14:58] LABS: BASO % 0.7 % (0-2.0); HEMATOCRIT 42.8 % (32.4-45.2); HEMOGLOBIN 14.2 GM/dL (10.7-15.3); LYMPH % 37.8 % (8-40); MCH 28.1 pg (25.7-33.7); MCHC 33.3 g/dl (32.0-36.0); MEAN CELL VOLUME 84.5 fl (80-96); MEAN PLT VOLUME 8.3 fl (7.5-11.1); MONO % 7.3 % (3.8-10.2); NEUT % 52.2 % (42.8-82.8); PLATELET COUNT 348 K/MM3 (134-434); RBC 5.06 M/mm3 (3.60-5.2); WHITE BLOOD COUNT 8.2 K/mm3 (4.0-10.0)
[2020-08-11 15:21] LABS: POTASSIUM 4.3 mmol/L (3.5-5.1)
[2020-08-11 15:22] LABS: BLOOD UREA NITROGEN 9.6 mg/dL (7-18); CALCIUM 8.4 mg/dL (8.5-10.1)
[2020-08-11 15:26] LABS: CREATININE 0.7 mg/dL (0.55-1.3)
== END 2020-08-11 17:15 | disposition home or self-care (01) ==
LOC: JCOVINFU 13:26
DX: U07.1 COVID-19 (principal)
CPT/HCPCS: 36415; 80048; 85025; 99284-25; M0239; Q0239; Q0245

== ENCOUNTER 2023-01-09 21:04 | Emergency (ER) | payer BC, OTHER ==
[2023-01-09 21:09] VITALS: BP 147/85; PULSE 84; RESP 18; TEMP 98.4; BMI 32.4
[2023-01-09] MEDS ORDERED: KETOROLAC TROMETHAMINE 30 MG/1 ML VIAL IM ONE (22:00)
[2023-01-09] MEDS ORDERED: LIDOCAINE 5% TOPICAL PATCH TP ONE (22:01)
[2023-01-09] MEDS ORDERED: ACETAMINOPHEN 500 MG TABLET (FP) PO ONE (22:01)
[2023-01-09] MEDS ORDERED: LIDOCAINE 5% TOPICAL PATCH ONE (22:02)
[2023-01-09] MEDS ORDERED: ACETAMINOPHEN 500 MG TABLET (FP) ONE (22:02)
[2023-01-10] MEDS ORDERED: LIDOCAINE PATCH REMOVAL MC SCH (10:00)
== END 2023-01-09 22:28 | disposition home or self-care (01) ==
LOC: JERFT 21:04
PROC: 3E0233Z Introduction of Anti-inflammatory into Muscle, Percutaneous Approach (ICD-10-PCS; principal; 2023-01-09)
DX: M54.50 Low back pain, unspecified (principal)
CPT/HCPCS: 99284-25